=== PATIENT | male | born 1975 | race Hispanic/Latino ===

== ENCOUNTER 2018-06-23 10:03 | Outpatient (CLI) | payer OTHER ==
--- NOTE | 2018-06-23 10:45 | RAD ---
RADIOGRAPH ABDOMEN TWO VIEWS: DATE: 06-23-18 TIME: 9:58 a.m. History: 42-year-old male status post blunt trauma to the abdomen. FINDINGS: No evidence of pneumoperitoneum. Normal bowel gas pattern. No grossly displaced fracture or pelvis id entified. IMPRESSION: Negative. POS: [facility]
== END 2018-06-23 10:04 | disposition home or self-care (01) ==
LOC: MADRAD 10:03
PROVIDERS: ATTEND Family Medicine
DX: S39.81XA Other specified injuries of abdomen, initial encounter (principal)
CPT/HCPCS: 74019